=== PATIENT | female | born 1990 | race Caucasian/White ===

== ENCOUNTER 2019-04-22 11:29 | Emergency (ER) | payer BC ==
[2019-04-22 11:47] VITALS: BP 114/77; PULSE 65; TEMP 98.2; BMI 27.8
[2019-04-22 13:02] LABS: BASO % 0.5 % (0-2.0); HEMATOCRIT 41.9 % (32.4-45.2); HEMOGLOBIN 14.1 GM/dL (10.7-15.3); LYMPH % 21.3 % (8-40); MCH 28.6 pg (25.7-33.7); MCHC 33.6 g/dl (32.0-36.0); MEAN CELL VOLUME 85.2 fl (80-96); MONO % 7.4 % (3.8-10.2); NEUT % 69.8 % (42.8-82.8); PLATELET COUNT 273 K/MM3 (134-434); RBC 4.92 M/mm3 (3.60-5.2); RDW 13.7 % (11.6-15.6); WHITE BLOOD COUNT 10.4 K/mm3 (4.0-10.0)
[2019-04-22 13:29] LABS: ALBUMIN 4.1 g/dl (3.4-5.0); ALK PHOS 73 U/L (45-117); ANION GAP 7 MMOL/L (8-16); BILIRUBIN,TOTAL 0.3 mg/dL (0.2-1); BLOOD UREA NITROGEN 10.5 mg/dL (7-18); CHLORIDE 106 mmol/L (98-107); CO2 25 mmol/L (21-32); CREATININE 0.7 mg/dL (0.55-1.3); GLUCOSE,RANDOM 86 mg/dL (74-106); POTASSIUM 4.1 mmol/L (3.5-5.1); SGOT/AST 17 U/L (15-37); SGPT/ALT 26 U/L (13-61); SODIUM 138 mmol/L (136-145); TOT PROT 7.7 g/dl (6.4-8.2)
--- NOTE | 2019-04-22 13:36 | PDOC ---
History of Present Illness - General Chief Complaint: Chest Pain Stated Complaint: CHEST PAIN Time Seen by Provider: 04/22/19 12:39 History Source: Patient Exam Limitations: Clinical Condition - History of Present Illness Initial Comments: 04/22/19 13:31 Patient with no significant past medical history sent in by PCP for evaluation with complaint of midsternal chest pain for 3 days which has resolved today. Patient reported no symptoms now. Patient feels symptoms most likely caused by stress. Denies shortness of breath, chest pain now, dizziness, nausea, vomiting , numbness or tingling sensation. Denies headache, lightheadedness. Denies any other symptoms Is this a multiple visit Asthma Patient?: No Timing/Duration: other (3 days) Past History - Past Medical History Allergies/Adverse Reactions: Allergies Allergy/AdvReac Type Severity Reaction Status Date / Time No Known Allergies Allergy Verified 04/02/15 21:57 Home Medications: Ambulatory Orders NK [No Known Home Medication] 04/22/19 Asthma: No Cancer: No Cardiac Disorders: No COPD: No Diabetes: No HTN: No Seizures: No Thyroid Disease: No - Immunization History Immunization Up to Date: Yes - Psycho Social/Smoking Cessation Hx Smoking Status: No Smoking History: Never smoked Have you smoked in the past 12 months: No Number of Cigarettes Smoked Daily: 0 Information on smoking cessation initiated: No Hx Alcohol Use: No Drug/Substance Use Hx: No Substance Use Type: None Hx Substance Use Treatment: No Review of Systems - Review of Systems Able to Perform ROS?: Yes Is the patient limited [place] proficient: No Constitutional: No: Fever, Malaise, Weakness HEENTM: No: Symptoms Reported, See HPI, Eye Pain, Blurred Vision, Tearing, Recent change in vision, Double Vision, Cataracts, Ear Pain, Ocular Prothesis, Ear Discharge, Nose Pain, Nose Congestion, Tinnitus, Nose Bleeding, Hearing Loss , Throat Pain, Throat Swelling, Mouth Pain, Dental Problems, Difficulty Swallowing, Mouth Swelling, Other Respiratory: No: Symptoms reported, See HPI, Cough, Orthopnea, Shortness of Breath, SOB with Exertion, SOB at Rest, Stridor, Wheezing, Productive cough, Hemoptysis, Other Cardiac (ROS): Yes: Symptoms Reported, See HPI, Chest Pain (midsternum chest pain resolved). No: Edema, Irregular Heart Rate, Lightheadedness, Palpitations , Syncope, Chest Tightness, Other ABD/GI: No: Nausea, Vomiting : No: Symptoms Reported Musculoskeletal: No: Symptoms Reported Integumentary: No: Symptoms Reported Psychiatric: Yes: Anxiety All Other Systems: Reviewed and Negative *Physical Exam - Vital Signs Last Vital Signs Temp Pulse Resp BP Pulse Ox 98.2 F 65 18 114/77 98 04/22/19 11:45 04/22/19 11:45 04/22/19 11:45 04/22/19 11:45 04/22/19 11:45 - Physical Exam Comments: 04/22/19 13:32 GENERAL: Well developed, well nourished. Awake and alert. No acute distress. HEENT: Normocephalic, atraumatic. PERRLA, EOMI. No conjunctival pallor. Sclera are non-icteric. Moist mucous membranes. Oropharynx is clear. NECK: Supple. Full ROM. CARDIOVASCULAR: Regular rate and rhythm. No murmurs, rubs, or gallops. Distal pulses are 2+ and symmetric. PULMONARY: No evidence of respiratory distress. Lungs clear to auscultation bilaterally. No wheezing, rales or rhonchi. ABDOMINAL: Soft. Non-tender. Non-distended. No rebound or guarding. No organomegaly. Normoactive bowel sounds. MUSCULOSKELETAL Normal range of motion at all joints. SKIN: Warm and dry. Normal capillary refill. No rashes. No jaundice. NEUROLOGICAL: Alert, awake, appropriate. Gait is normal without ataxia. PSYCHIATRIC: Cooperative. Good eye contact. Appropriate mood General Appearance: Yes: Nourished, Appropriately Dressed. No: Apparent Distress ED Treatment Course - LABORATORY CBC & Chemistry Diagram: 04/22/19 12:45 04/22/19 12:45 - ADDITIONAL ORDERS Additional order review: Laboratory Results 04/22/19 12:45 Sodium 138 Potassium 4.1 Chloride 106 Carbon Dioxide 25 Anion Gap 7 L BUN 10.5 Creatinine 0.7 Est GFR (CKD-EPI)AfAm 136.66 Est GFR (CKD-EPI)NonAf 117.91 Random Glucose 86 Calcium 9.0 Total Bilirubin 0.3 AST 17 ALT 26 Alkaline Phosphatase 73 Creatine Kinase 55 Troponin I < 0.02 Total Protein 7.7 Albumin 4.1 Beta HCG, Quant < 1.0 04/22/19 12:45 RBC 4.92 MCV 85.2 MCHC 33.6 RDW 13.7 MPV 9.0 D Neutrophils % 69.8 Lymphocytes % 21.3 D Monocytes % 7.4 Eosinophils % 1.0 Basophils % 0.5 - RADIOLOGY Radiology Studies Ordered: Category Date Time Status CHEST PA & LAT [RAD] Stat Radiology 04/22/19 12:42 Ordered Medical Decision Making - Medical Decision Making 04/22/19 13:33 Patient with no significant past medical history sent in by PCP for evaluation with complaint of midsternal chest pain for 3 days which has resolved today. Patient reported no symptoms now. Patient feels symptoms most likely caused by stress. Denies shortness of breath, chest pain now, dizziness, nausea, vomiting , numbness or tingling sensation. Denies headache, lightheadedness. Denies any other symptoms. Patient reporting she told her PCP and symptoms as resolved by PCP consents for her to come to the ED for evaluation. Clinical exam unremarkable with normal cardiac lung exam. CBC, cardiac profile lab ordered. EKG shows normal sinus rhythm. Chest x-ray ordered to rule out acute chest pathology. Patient will be discharged home if negative labs and chest x-ray to follow-up back with PCP 04/22/19 14:16 CBC and cardiac prophylaxis are unremarkable. Checks x-ray unremarkable. Patient is symptomatic and stable for discharge with cardiology follow-up Discharge - Discharge Information Problems reviewed: Yes Clinical Impression/Diagnosis: Chest pain Qualifiers: Chest pain type: pleurodynia Qualified Code(s): R07.81 - Pleurodynia Condition: Improved Disposition: HOME - Admission No - Follow up/Referral Referrals: Gregory Carbajal MD [Staff Physician] - - Patient Discharge Instructions Patient Printed Discharge Instructions: DI for Atypical Chest Pain Additional Instructions: Your labs and chest x-ray is normal. Your symptoms likely was caused by stress. Follow-up referred to cardiology if symptoms persist or come back to the emergency room with worsening symptoms - Post Discharge Activity Work/Back to School Note: Back to Work
--- NOTE | 2019-04-23 16:06 | EKG ---
Test Reason : Blood Pressure : / mmHG Vent. Rate : 065 BPM Atrial Rate : 065 BPM P-R Int : 148 ms QRS Dur : 090 ms QT Int : 394 ms P-R-T Axes : 038 033 007 degrees QTc Int : 409 ms NORMAL SINUS RHYTHM NONSPECIFIC T WAVE ABNORMALITY ABNORMAL ECG NO PREVIOUS ECGS AVAILABLE Confirmed by BASHIR SHIRLEY, BOBBI ([id number]) on 04/23/2019 4:06:09 PM Referred By: Confirmed By:BOBBI CAMEJO MD
== END 2019-04-22 14:00 | disposition home or self-care (01) ==
LOC: JER 11:29
DX: R07.81 Pleurodynia (principal)
CPT/HCPCS: 36415; 71046-TC-FY; 80053; 82550; 84484; 84702; 85025; 93005; 93010; 99282-25

== ENCOUNTER 2020-09-18 07:53 | Emergency (ER) | payer BC ==
[2020-09-18 08:03] VITALS: BP 138/83; PULSE 99; TEMP 98.4; BMI 26.4
[2020-09-18 08:24] LABS: HCG,QUALITATIVE URINE Negative
[2020-09-18 08:38] LABS: EPI CELLS 19 /uL (0-25.1); HYALINE CASTS 2 /uL (0-3.1); PH,URINE 6.5 (5.0-8.0); URINE APPEARANCE CLOUDY; URINE BACTERIA 176 /uL (0-1359); URINE BILIRUBIN NEGATIVE (NEGATIVE); URINE COLOR YELLOW; URINE GLUCOSE (UA) NEGATIVE (NEGATIVE); URINE KETONE NEGATIVE (NEGATIVE); URINE LEUK ESTERASE 2+ (NEGATIVE); URINE NITRITE NEGATIVE (NEGATIVE); URINE PROTEIN 1+ (NEGATIVE); URINE UROBILINOGEN 0.2 mg/dL (0.2-1.0); URINE WBC 338 /uL (0-25.8)
[2020-09-18 09:04] LABS: URINE RBC 143.1 /uL (0-23.9); YEAST NO SEEN (NEGATIVE)
== END 2020-09-18 09:09 | disposition home or self-care (01) ==
LOC: JER 07:53
DX: R30.0 Dysuria (principal)
CPT/HCPCS: 81003; 84703; 87077; 87086; 99284-25

== ENCOUNTER 2021-12-04 14:52 | Emergency (ER) | payer SELFPAY ==
[2021-12-04 15:01] VITALS: BP 119/77; PULSE 81; TEMP 98.1; BMI 28.3
== END 2021-12-04 15:51 | disposition home or self-care (01) ==
LOC: JERFT 14:52
PROC: 0H9GXZZ Drainage of Left Hand Skin, External Approach (ICD-10-PCS; principal; 2021-12-04)
DX: L03.012 Cellulitis of left finger (principal)
CPT/HCPCS: 99283-25